=== PATIENT | female | born 1995 | race Caucasian/White ===

== ENCOUNTER 2016-11-05 15:39 | Inpatient (IN) | payer OTHER ==
[~2016-11-05] VITALS: Ht 157.5 cm; Wt 97.5 kg
--- NOTE | ~2016-11-05 | OR ---
[facility] 21 [facility] [address] ROOM: [place] [address] LOCATION: GOBS ADMIT DATE: 11/05/2016 OR/Procedure Report DISCHARGE DATE: FAMILY PHYSICIAN: Nicholas Regan MD ATTENDING PHYSICIAN: JESSICA MANN SURGEON: Jessica Mann MD BENCH WORKER BINDING: César Jernigan Dr.'s assistance was required for safe delivery of the fetus as well as adequate visualization of the tissue. DATE OF PROCEDURE: 11/06/2016 PROCEDURE PERFORMED: Primary low transverse section. ESTIMATED BLOOD LOSS: 800 mL. PREOPERATIVE DIAGNOSES: 1. Intrauterine at 40 weeks, 0 days. 2. Preeclampsia with severe features. 3. Non-reassuring heart tones with late decelerations. POSTOPERATIVE DIAGNOSES: 1. Intrauterine at 40 weeks, 0 days. 2. Preeclampsia with severe features. 3. Non-reassuring heart tones with late decelerations. ANTIBIOTICS: 2 g of Ancef and 500 mg azithromycin IV. ANESTHESIA: Anesthesia was with epidural. FINDINGS: Viable male , weight 6 pounds, 13 ounces. score of 7 and 9. Intact placenta with 3-vessel cord. Normal-appearing uterus, tubes, and ovaries bilaterally. SPECIMENS: Cord blood and placenta. Attempt was made to obtain cord pH, but we were unable to get a proper specimen. COMPLICATIONS: None. DISPOSITION: The patient is stable and sent back to her room. INDICATION FOR THE PROCEDURE: The patient is a who presented at 39 weeks and 6 days to the office for a scheduled OB visit. The patient had severe range blood pressures of 160-170/100-110 in the office and was sent over to Labor and Delivery for plans for induction of labor since she was term. Labs were obtained upon arrival. CBC and CMP were within normal [facility] 21 Y [address] ROOM: [place] [address] LOCATION: [facility] ADMIT DATE: 11/05/2016 OR/Procedure Report DISCHARGE DATE: FAMILY PHYSICIAN: Nicholas Regan MD ATTENDING PHYSICIAN: JESSICA MANN limits. Urine protein to creatinine ratio was 1.0. She was diagnosed with preeclampsia with severe features. The patient also complained of a slight headache and spots in her vision. She was started on IV magnesium per protocol. Blood pressures did not reach severe range during her hospitalization. AROM was performed and Pitocin was started. The patient was 3 cm on admission. She made progress to 5 cm. The patient was noted to have a late deceleration around the hours of 0200 this morning and then continued to have repetitive late decelerations. IV Pitocin was stopped and the patient was given oxygen and repositioned. Late decelerations failed to resolve and she was recommended to undergo a primary low-transverse section. She is aware of the risks of procedure which include but are not limited to, risk of infection, risk of bleeding, risk associated with anesthesia, risk of injury to bowel and bladder, and risk of thromboembolism. She was aware of the risks and desired to proceed. DESCRIPTION OF PROCEDURE: The patient was taken back to the operating room. The epidural anesthesia had already been established and was dosed up appropriately for the procedure. She was laid in dorsal supine position with a leftward tilt of the hips. A Justice catheter had previously been placed. She was prepped and draped in the usual sterile fashion. Anesthesia was tested and found to be adequate. Incision was made in skin and carried down to the underlying fascia. Fascia was nicked on both sides of the midline. Fascial incision was extended with Lopez scissors. Nick clamps were used to tent up the fascia superiorly and inferiorly to dissect from the underlying rectus muscles. The peritoneum was entered bluntly and spread. Bladder blade and wrench were placed for retraction. A clean knife was used to make a low transverse hysterotomy incision. The incision was spread in a cephalocaudad direction. Surgeon's hand was placed into the uterus. The head was delivered out of the incision. With the assistance of fundal pressure, the shoulders and remainder of the body were delivered. Infant was noted to be male with a vigorous cry. Cord is clamped and cut and the was handed off to the awaiting NICU nurses. Attempt was made to obtain an arterial cord pH and a significant specimen could not be obtained. Cord blood was obtained. IV Pitocin was started per protocol. Gentle traction was placed on the umbilical cord and the uterus was massaged until the placenta was expressed. Uterus was then exteriorized. Bladder blade was replaced. Uterus was cleared of all clots and debris using a wet lap sponge. The uterine incision was then closed in a 2 layer fashion with 1st a running locked layer and then a 2nd imbricating layer. Uterine incision appeared hemostatic and the uterus was replaced back into the abdomen. Bladder blade was placed. Incision was again inspected and noted to be hemostatic. Bilateral pericolic gutters were cleared of clots. The fascia was then closed in a running nonlocked fashion using 0 Vicryl. Subcutaneous tissue was irrigated and any areas of bleeding were cauterized with Bovie cautery. Skin was then closed using a 4-0 Vicryl on a Linus needle. Mastisol and Steri- PATIENT'S NAME: CAMILLE KERN [facility] AGE: 21 Y [address] ROOM: [address] [address] LOCATION: [facility] ADMIT DATE: 11/05/2016 OR/Procedure Report DISCHARGE DATE: FAMILY PHYSICIAN: Nicholas Regan MD ATTENDING PHYSICIAN: JESSICA MANN Strips were applied to the incision. All needle, sponge, and instrument counts were noted to be correct x2. The patient was taken back to her room in stable condition. JESSICA MANN MD GT/modl /[id number] d: 11/06/16654 t: 11/07/16 0855, OPERATIVE SUMMARY
--- NOTE | ~2016-11-05 | DS ---
PATIENT'S NAME: CAMILLE KERN [facility] AGE: 21 Y [address] ROOM: [place] [id number] LOCATION: [facility] ADMIT DATE: 11/05/2016 Discharge Summary DISCHARGE DATE: 11/09/2016 FAMILY PHYSICIAN: Nicholas Regan MD ATTENDING PHYSICIAN: Jessica Mann ADMISSION DIAGNOSES: 1. Intrauterine at 39 weeks and 6 days. 2. Preeclampsia with severe features. 3. Non-reassuring heart tones with late decelerations. PROCEDURE PERFORMED DURING THIS HOSPITALIZATION: Primary low-transverse section. COMPLICATIONS: None. CONSULTATIONS: None. HISTORY AND HOSPITAL COURSE: The patient is a G1, P0, who presented at 39 weeks and 6 days for an induction of labor, secondary to preeclampsia with severe features. She had severe range blood pressures in the office and urine pdaupba-co-kpaueespbo ratio that was 1.02. Remainder of her labs were within normal limits. She was started on IV magnesium, and an AROM was performed. She made progress to 5 cm, but then had late decelerations on Pitocin. She underwent primary low-transverse section without complication. Total EBL was 800. She delivered a viable male weighing 6 pounds 13 ounces with score of 7 and 9. She was kept on magnesium for 24 hours following delivery. She did not have any further severe range blood pressures. Hemoglobin was trended and did drop to 6.9 in the afternoon of postop day #1. She was given 1 unit of packed red blood cells on postop day #2. She was feeling better on postop day #3 and was felt to be stable for discharge home as she was meeting all postoperative goals. DISCHARGE PRECAUTIONS: She was instructed to call if fever greater than 100.4, redness or drainage around her incision, heavy vaginal bleeding and instructed not to lift anything greater than 15 pounds for the next 4 weeks. She is to follow up with me in the office in 2 weeks for an incision check. DISCHARGE MEDICATIONS: Please see medication list. JESSICA MANN MD PATIENT'S NAME: CAMILLE KERN [facility] AGE: 21 Y [address] ROOM: [address] [address] LOCATION: GOBS ADMIT DATE: 11/05/2016 Discharge Summary DISCHARGE DATE: 11/09/2016 FAMILY PHYSICIAN: Nicholas Regan MD ATTENDING PHYSICIAN: Jessica Mann/bird /[id number] d: 11/10/16315 t: 11/11/16 2154, DISCHARGE SUMMARY
[~2016-11-05 15:39] MED LIST: BACITRACIN OINT30 GM TOP; NORCO 5-325 MG1 TAB PO; PRENATAL 1+1)(P1 TAB PO; TYLENOL WITH C1 EACH PO; ZOFRAN4 MG PO
[2016-11-05 17:18] LABS: BASOPHIL % 0.3 %; EOSINOPHIL # 0.1 K/uL (0.0-0.5); EOSINOPHIL % 1.2 %; HEMATOCRIT 40.2 % (33.0-46.0); HEMOGLOBIN 13.6 g/dL (11.0-15.0); IMMATURE GRANULOCYTE # 0.1 K/uL (0.0-0.3); IMMATURE GRANULOCYTE % 0.6 %; LYMPHOCYTE # 1.8 K/uL (0.8-4.0); LYMPHOCYTE % 16.1 %; MCHC 33.8 gm/dL (32.0-36.5); MCV 88.7 fl (83.0-98.0); MONOCYTE # 0.8 K/uL (0.0-1.0); MONOCYTE % 7.3 %; MPV 11.4 fl (9.4-12.4); NEUTROPHIL # (ANC) 8.3 K/uL (1.8-7.8); NEUTROPHIL % 74.5 %; NRBC % 0 /100WBC (0-0.00); PLATELET COUNT 257 K/uL (150-450); RBC 4.53 M/uL (3.50-5.00); RDW-CV 15.4 % (11.9-14.6); WBC 11.1 K/uL (4.0-11.0)
[2016-11-05 17:38] LABS: ALBUMIN 2.9 gm/dL (3.5-5.0); ALK PHOS 143 IU/L (33-138); ALT 21 IU/L (12-78); AST 21 IU/L (10-40); BLOOD UREA NITROGEN 10 mg/dL (6-24); CALCIUM 9.4 mg/dL (8.5-10.5); CHLORIDE 110 mMol/L (96-110); CO2 21 mMol/L (22-32); CREATININE 0.4 mg/dL (0.5-1.1); ESTIMATED GFR (MDRD EQUATION) > 60; SODIUM 140 mMol/L (135-145); TOTAL BILIRUBIN 0.2 mg/dL (0.0-1.5); TOTAL PROTEIN 6.9 g/dL (6.0-8.4)
[2016-11-07 05:05] LABS: BASOPHIL % 0.2 %; EOSINOPHIL # 0.1 K/uL (0.0-0.5); IMMATURE GRANULOCYTE # 0.1 K/uL (0.0-0.3); IMMATURE GRANULOCYTE % 0.5 %; LYMPHOCYTE # 2.1 K/uL (0.8-4.0); LYMPHOCYTE % 15.7 %; MCV 90.3 fl (83.0-98.0); MONOCYTE # 1.1 K/uL (0.0-1.0); MPV 10.8 fl (9.4-12.4); NEUTROPHIL # (ANC) 9.9 K/uL (1.8-7.8); NEUTROPHIL % 74.6 %; NRBC % 0 /100WBC (0-0.00); RDW-CV 15.9 % (11.9-14.6); WBC 13.3 K/uL (4.0-11.0)
[2016-11-07 05:06] LABS: RBC 2.37 M/uL (3.50-5.00)
[2016-11-07 05:07] LABS: HEMATOCRIT 21.4 % (33.0-46.0); HEMOGLOBIN 7.1 g/dL (11.0-15.0); MCHC 33.2 gm/dL (32.0-36.5); PLATELET COUNT 202 K/uL (150-450)
[2016-11-07 16:07] LABS: BASOPHIL % 0.2 %; EOSINOPHIL # 0.2 K/uL (0.0-0.5); EOSINOPHIL % 1.5 %; HEMATOCRIT 20.7 % (33.0-46.0); IMMATURE GRANULOCYTE # 0.1 K/uL (0.0-0.3); IMMATURE GRANULOCYTE % 0.6 %; LYMPHOCYTE # 2.3 K/uL (0.8-4.0); LYMPHOCYTE % 23.4 %; MCH 30.5 pg (27.0-34.0); MCHC 33.3 gm/dL (32.0-36.5); MCV 91.6 fl (83.0-98.0); MONOCYTE # 0.8 K/uL (0.0-1.0); MPV 10.8 fl (9.4-12.4); NEUTROPHIL # (ANC) 6.6 K/uL (1.8-7.8); NEUTROPHIL % 66.3 %; NRBC % 0 /100WBC (0-0.00); PLATELET COUNT 208 K/uL (150-450); RBC 2.26 M/uL (3.50-5.00); RDW-CV 16.1 % (11.9-14.6); WBC 9.9 K/uL (4.0-11.0)
[2016-11-07 16:10] LABS: HEMOGLOBIN 6.9 g/dL (11.0-15.0)
[2016-11-09] MEDS ORDERED: SURFAK240 MG PO (16:51)
[2016-11-09] MEDS ORDERED: APNO TOP (16:54)
[2016-11-09] MEDS ORDERED: MOTRIN800 MG PO (16:54)
[2016-11-09] MEDS ORDERED: FEOSOL325 MG PO (16:54)
[2016-11-09] MEDS ORDERED: PERCOCET 5-3251 EACH PO (16:55)
== END 2016-11-09 20:15 | disposition disaster alternative care site (69) | DRG 765 ==
LOC: GOBS 15:39 → GOBM 15:39 → GOBS 15:40 → GOBM 11-06 14:31 → GOBS 11-09 20:15
PROVIDERS: ADMIT Obstetrics & Gynecology
PROC: 4A1HX4Z Monitoring of Products of Conception, Cardiac Electrical Activity, External Approach (ICD-10-PCS; principal; 2016-11-06)
PROC: 10D00Z1 Extraction of Products of Conception, Low, Open Approach (ICD-10-PCS; principal; 2016-11-06)
PROC: 3E033VJ Introduction of Other Hormone into Peripheral Vein, Percutaneous Approach (ICD-10-PCS; principal; 2016-11-06)
PROC: 10907ZC Drainage of Amniotic Fluid, Therapeutic from Products of Conception, Via Natural or Artificial Opening (ICD-10-PCS; principal; 2016-11-06)
DX: O14.13 Severe pre-eclampsia, third trimester (principal); O72.1 Other immediate postpartum hemorrhage; O61.0 Failed medical induction of labor; O76 Abnormality in fetal heart rate and rhythm complicating labor and delivery; Z3A.39 39 weeks gestation of pregnancy; Z37.0 Single live birth
CPT/HCPCS: J0456; J0610; J0690; J1885; J2001; J2270; J2405; J2590; J3010; J3475; J7050; J7120; P9016